=== PATIENT | male | born 1990 | race Caucasian/White ===

== ENCOUNTER → 2021-01-08 | Outpatient (REF) | payer BC | LOC: M SFHCADAM 13:36 | PROVIDERS: ATTEND Physician Assistant | DX: F90.2 Attention-deficit hyperactivity disorder, combined type (principal); Z79.899 Other long term (current) drug therapy ==

== ENCOUNTER → 2023-02-17 | Outpatient (REF) | payer BC ==
[2023-02-17 16:36] LABS: CHOLESTEROL RISK RATIO 3.98 (<5); HDL CHOLESTEROL 37.6 MG/DL (>40); NON-HDL-C 112.4 MG/DL
[2023-02-17 16:46] LABS: HEMOGLOBIN A1c 5.1 % (4.0-6.0)
[2023-02-17 16:48] LABS: CREATININE, URINE 168.6 MG/DL; MAU/CREAT RATIO 31.4 MCG/MG (0.0-30.0)
== END ==
LOC: M SFHCADAM 14:17
PROVIDERS: ATTEND Physician Assistant
DX: Z13.220 Encounter for screening for lipoid disorders (principal); Z53.20 Procedure and treatment not carried out because of patient's decision for unspecified reasons; F90.2 Attention-deficit hyperactivity disorder, combined type; I10 Essential (primary) hypertension

== ENCOUNTER → 2023-04-02 | Outpatient (CLI) | payer BC | LOC: M CARPUL 11:40 | PROVIDERS: ATTEND Physician Assistant | DX: I10 Essential (primary) hypertension (principal) ==